=== PATIENT | male | born 1945 | race African-American/Black ===

== ENCOUNTER 2018-11-17 00:50 | Emergency (ER) | payer MEDICARE ==
[~2018-11-17] VITALS: Ht 170.2 cm; Wt 68.0 kg
[2018-11-17] MEDS ORDERED: LISINOPRIL20 MG ORAL (01:05)
[2018-11-17] MEDS ORDERED: NOVOLOG100 UNIT/4 SQ (01:05)
--- NOTE | 2018-11-17 01:06 | NUR ---
ED Nurse Note: pt was wheeled into ED. pt was c/o left great toe pain due to dropping a glass table on it earlier today.
--- NOTE | 2018-11-17 01:38 | NUR ---
ED Nurse Note: xray completed
[2018-11-17] MEDS ORDERED: NORCO 5-325 TA1 EACH ORAL (01:56)
[2018-11-17] MEDS ORDERED: Acetaminophen 500mg (ES) tab ORAL ONE (02:00)
--- NOTE | 2018-11-17 02:25 | NUR ---
ED Nurse Note: Patient discharged in stable condition. Patient verbalized understanding of discharge instructions. ID band removed. Patient A&Ox4, ambulatory with cane. Patient plans to wait for his ride home to return. Patient departed with all personal belongings.
[2018-11-17 02:27] VITALS: BP 170/83
--- NOTE | 2018-11-17 04:14 | Emergency Room Report ---
History of Present Illness General Chief Complaint: Lower Extremity Injury Source: Patient Present Illness HPI Patient is a 73-year-old male presented after increased left lower extremity pain. Patient reports having dropped a nightstand on his left great toe. Patient injury just prior to arrival. He reports having moderate pain. Patient reports having taken Benadryl prior to arrival. He denies taking any other medications. He stated that he had been able to ambulate with increased pain. He denies other locations of pain. Allergies: Coded Allergies: IBUPROFEN (Verified Allergy, Unknown, 11/17/18) Patient History Past Medical History: see triage record Reviewed Nursing Documentation: PMH: Agreed; PSxH: Agreed Nursing Documentation-PM Past Medical History: No History, Except For Hx Hypertension: Yes Hx Diabetes: Yes Review of Systems All Other Systems: negative except mentioned in HPI Physical Exam Vital Signs Date Time Temp Pulse Resp B/P (MAP) Pulse Ox O2 Delivery O2 Flow Rate FiO2 11/17/18 01:02 98.2 90 18 96 Room Air 11/17/18 02:27 170/83 General Appearance: well appearing, no apparent distress, alert, GCS 15, Chronically Ill Head: normocephalic, atraumatic ENT: hearing grossly normal, normal voice Neck: full range of motion, supple Respiratory: no respiratory distress, speaking full sentences Cardiovascular #1: normal inspection, no edema Musculoskeletal: swelling - left great toe swelling, no laceration Neurologic: normal gait Psychiatric: mood/affect normal Skin: no rash Medical Decision Making Diagnostic Impression: Primary Impression: Fracture, toe ER Course Patient presented for great toe swelling. Differential diagnosis include was not limited to fracture, contusion, compartment syndrome, gout among others. X- ray imaging of the lower extremity left foot 3 views interpreted by me showed normal bony alignment with a hairline fracture of the great toe distal phalanx. Patient was noted to be somewhat somnolent due to recent Benadryl use. He was given Tylenol for pain. Patient given prescription for stronger medications and was advised to only take this if pain was not relieved by Tylenol. Patient was given podiatry referral. He was advised to keep his toe elevated and to return if he had any worsening of condition or other concerns.Patient was advised to use a cane. Last Vital Signs Date Time Temp Pulse Resp B/P (MAP) Pulse Ox O2 Delivery O2 Flow Rate FiO2 11/17/18 02:27 98.2 18 170/83 96 Room Air 11/17/18 01:02 90 Status: improved Disposition: HOME, SELF-CARE Condition: Stable Scripts Hydrocodone Bit/Acetaminophen 5-325* (NORCO 5-325*) 1 Each Tablet 1 TAB ORAL Q6H PRN for For Pain, #20 TAB 0 Refills Prov: Robby Portillo MD 11/17/18 Referrals: NOT CHOSEN IPA/MD,REFERRING (PCP) Carlos Irene DPM Patient Instructions: Toe Fracture Robby Portillo MD November 17, 2018 04:14
--- NOTE | 2018-11-17 16:51 | Diagnostic Imaging Report ---
Indication: Foot pain Comparison: None Findings: 3 views of the left foot were obtained. There is an apparent nondisplaced fracture of the first distal phalange. There is no malalignment. IMPRESSION: Suspected acute fracture involving the first distal phalange
== END 2018-11-17 02:28 | disposition home or self-care (01) ==
LOC: EMR 01:29
DX: S92.425A Nondisplaced fracture of distal phalanx of left great toe, initial encounter for closed fracture (principal); W22.8XXA Striking against or struck by other objects, initial encounter; Y92.9 Unspecified place or not applicable; I10 Essential (primary) hypertension; E11.9 Type 2 diabetes mellitus without complications; Z88.6 Allergy status to analgesic agent
CPT/HCPCS: 99283

== ENCOUNTER 2020-09-06 20:15 | Emergency (ER) | payer MEDICARE, OTHER ==
[~2020-09-06] VITALS: Ht 175.3 cm; Wt 70.8 kg
[~2020-09-06 20:15] MED LIST: LISINOPRIL20 MG ORAL; NORCO 5-325 TA1 EACH ORAL; NOVOLOG100 UNIT/4 SQ
--- NOTE | 2020-09-06 20:30 | NUR ---
Patient arrived to ER via ambulatory c/o nose bleed and small cut in the finger . New orders received from EDP and carried out. All procedures were explain to the patient . Patient verbalized understanding. Safety and comfort measures taken: bed set in low position, frequent rounds, call light within reach. Will continue monitoring the patient during the sift.
[2020-09-06] MEDS ORDERED: Bacitracin Oint UD TOPIC ONE (21:00)
--- NOTE | 2020-09-06 21:08 | Emergency Room Report ---
History of Present Illness General Chief Complaint: Nosebleed Source: Patient Present Illness HPI Patient presents with two complaints. One is that his skin on his fingers is peeling off.This has been about a week that he has felt the fingertips have been hard and callused. He started cutting and peeling them off last night. He has been exposed to hand cambering machine operator that he does not think is actually a hand sanit izer. In addition he is complaining about seeing particulate matter in the water that he has been drinking as well as milk and other liquids. He states one medicine was changed 2 months ago but does not know what the medicine is. The patient also complains about nosebleeds which are intermittent. These have been going on for 2 years. He says that he was evaluated by his doctor with x- rays and possibly a CT scan in the past. He does not have any treatment for this at this time. He says there is crusting in the left nostril at this time although the bleeding recently has been in the right nostril. He denies any pain. No fevers or chills. He denies drug use (see tox screen). Patient is a current smoker and uses albuterol on occasion. The patient denies exposure to Covid positive contacts. No sore throat, chest pain, palpitations, nausea, vomiting, diarrhea, dysuria, abdominal pain, shortness of breath, joint pain, depression, anxiety, visual changes, dizziness, headache. Allergies: Coded Allergies: IBUPROFEN (Verified Allergy, Unknown, 11/17/18) COVID-19 Screening Contact w/high risk pt: No Experienced COVID-19 symptoms?: No COVID-19 Testing performed WIRELESS OPERATOR: No Patient History Past Medical History: see triage record Social History: Reports: smoking, alcohol use, drug use - See talk screen Social History Narrative was staying with a friend Reviewed Nursing Documentation: PMH: Agreed; PSxH: Agreed Nursing Documentation-PMH Hx Hypertension: Yes Hx Diabetes: Yes Review of Systems All Other Systems: negative except mentioned in HPI Physical Exam Vital Signs Date Time Temp Pulse Resp B/P (MAP) Pulse Ox O2 Delivery O2 Flow Rate FiO2 09/06/20 20:33 98.4 78 18 125/78 (94) 97 Room Air Sp02 EP Interpretation: reviewed, normal General Appearance: well appearing, no apparent distress, GCS 15 Head: normocephalic, atraumatic Eyes: bilateral eye normal inspection, bilateral eye PERRL, bilateral eye EOMI ENT: normal pharynx, moist mucus membranes, other - No active bleeding, crusting left nostril. Kleenex in right nostril Neck: normal inspection Respiratory: normal inspection, lungs clear, normal breath sounds Cardiovascular #1: regular rate, rhythm Cardiovascular #2: 2+ radial (R) Gastrointestinal: normal inspection Musculoskeletal: gait/station normal Neurologic: alert, grossly normal Psychiatric: mood/affect normal Skin: normal color, no rash, warm/dry, other - Cornified skin on fingertips with some desquamation where he has been picking, clubbing Medical Decision Making Diagnostic Impression: Primary Impression: Epistaxis Additional Impressions: Contact dermatitis Qualified Codes: L24.89 - Irritant contact dermatitis due to other agents Clubbing of fingers Cocaine abuse ER Course Patient presents with two problems. One is the desquamation of the skin on his fingers and the second is epistaxis. The unified dog gnosis would be Ethan's granulomatosis however the patient does not appear ill and the epistaxis has been longstanding and the desquamation recent. He has been exposed to different hand cambering machine operator. There is no active bleeding at this time. His color is good and therefore labs are not needed. An Accu-Chek will be obtained. Bacitracin will be used on the hands at this time and then there will be a prescription for other type of ointment possibly triamcinolone. We will obtain a list of his medications to make sure that there is nothing that would cause reaction of desquamation on his fingers. Accu-Chek 119. No active bleeding at this time. Discussed treatment plan with patient. Patient stable for outpatient observation and treatment. Urinalysis with tox screen positive returns after patient discharged. Of note the patient denied cocaine and methamphetamine use in his history. Laboratory Tests Test 09/06/20 21:04 09/06/20 21:30 POC Whole Blood Glucose Pending Urine Color Pale yellow Urine Appearance Clear Urine pH 7 (4.5-8.0) Urine Specific Hayden 1.010 (1.005-1.035) Urine Protein 2+ (NEGATIVE) H Urine Glucose (UA) Negative (NEGATIVE) Urine Ketones Negative (NEGATIVE) Urine Blood 1+ (NEGATIVE) H Urine Nitrite Negative (NEGATIVE) Urine Bilirubin Negative (NEGATIVE) Urine Urobilinogen Normal MG/DL (0.0-1.0) Urine Leukocyte Esterase Negative (NEGATIVE) Urine RBC 0-2 /HPF (0 - 0) H Urine WBC 0-2 /HPF (0 - 0) Urine Squamous Epithelial Cells None /LPF (NONE/OCC) Urine Bacteria None /HPF (NONE) Urine Opiates Screen Negative (NEGATIVE) Urine Barbiturates Screen Negative (NEGATIVE) Phencyclidine (PCP) Screen Negative (NEGATIVE) Urine Amphetamines Screen Negative (NEGATIVE) Urine Benzodiazepines Screen Negative (NEGATIVE) Urine Cocaine Screen Positive (NEGATIVE) H Urine Marijuana (THC) Screen Negative (NEGATIVE) Last Vital Signs Date Time Temp Pulse Resp B/P (MAP) Pulse Ox O2 Delivery O2 Flow Rate FiO2 09/06/20 21:48 98.3 18 138/89 98 Room Air 09/06/20 20:33 78 Status: improved Disposition: HOME, SELF-CARE Condition: Improved Scripts Bacitracin (Bacitracin) 28.4 Gm Oint...g. 1 APPLIC TOPIC DAILY PRN for nasal dryness, #10 GM Prov: Mack Bliss MD 09/06/20 Triamcinolone Acetonide (Triamcinolone Acetonide 0.5% Oint*) 15 Gm Oint...g. 1 APPLIC TP BID PRN for contact dermatitis, #60 GM 1 Refill Prov: Mack Bliss MD 09/06/20 Mack Bliss MD Sep 06, 2020 21:08
[2020-09-06] MEDS ORDERED: METFORMIN ER1000 MG PO (21:21)
[2020-09-06] MEDS ORDERED: NORVASC10 MG ORAL (21:21)
[2020-09-06] MEDS ORDERED: MEGACE40 MG PO (21:22)
[2020-09-06] MEDS ORDERED: BACITRACIN15 GM TOPIC (21:32)
[2020-09-06] MEDS ORDERED: TRIAMCINOLONE A15 G3 TP (21:32)
[2020-09-06 21:39] LABS: APPEARANCE,URINE CLEAR; BILIRUBIN, URINE NEGATIVE (NEGATIVE); COLOR,URINE PALE YELLOW; GLUCOSE, URINE (UA) NEGATIVE (NEGATIVE); KETONES,URINE NEGATIVE (NEGATIVE); LEUKOCYTE ESTERASE ,URINE NEGATIVE (NEGATIVE); NITRITE,URINE NEGATIVE (NEGATIVE); PH,URINE 7 (4.5-8.0); PROTEIN,URINE 2+ (NEGATIVE); UROBILINOGEN,URINE NORMAL MG/DL (0.0-1.0)
[2020-09-06 21:48] VITALS: BP 138/89
--- NOTE | 2020-09-06 21:49 | NUR ---
Patient was discharge as EDP ordered. All vital signs were taken within normal range. Patient . All prescriptions and instructions were given to the patient . Patient verbalized understanding. patient left the hospital in stable condition .
== END 2020-09-06 21:45 | disposition home or self-care (01) ==
LOC: EMR 21:37
DX: L24.89 Irritant contact dermatitis due to other agents (principal); R04.0 Epistaxis; R68.3 Clubbing of fingers; F14.10 Cocaine abuse, uncomplicated; F17.200 Nicotine dependence, unspecified, uncomplicated; I10 Essential (primary) hypertension; E11.9 Type 2 diabetes mellitus without complications; Z88.6 Allergy status to analgesic agent
CPT/HCPCS: 80307; 81003; 82962; 99284